=== PATIENT | male | born 1995 | race Caucasian/White ===

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

== ENCOUNTER 2017-02-07 22:03 | Emergency (ER) | payer OTHER ==
[~2017-02-07] VITALS: Ht 175.3 cm; Wt 90.7 kg
[~2017-02-07 22:03] MED LIST changes: +ALBENZA200 MG PO
[2017-02-07 22:11] VITALS: BP 128/79
--- NOTE | 2017-02-07 22:48 | ED MVC/FALL/TRAUMA COMPLAINT ---
History of Present Illness General Chief Complaint: Neck/Upper Back Pain/Injury Stated Complaint: FALL THIS AM, BACK PAIN PER PT Source: patient Exam Limitations: no limitations Vital Signs & Intake/Output Vital Signs & Intake/Output Vital Signs Date Time Temp Pulse Resp B/P Pulse O2 O2 Flow FiO2 Ox Delivery Rate 02/07 2211 96.9 82 18 128/79 97 Room Air ED Intake and Output 02/08 0000 02/07 1200 Intake Total Output Total Balance Patient 200 lb Weight Allergies Coded Allergies: NO KNOWN ALLERGIES (08/16/12) Reconcile Medications Albendazole (Albenza) 200 MG TABLET 2 TAB PO ONCE PINWORMS REPEAT DOSE IN 2 WEEKS Albendazole (Albenza) 200 MG TABLET 2 TAB PO ONCE PINWORM REPEAT IN 2 WEEKS Cyclobenzaprine HCl 10 MG TABLET 1 TAB PO TID BACK SPASMS Ibuprofen 800 MG TABLET 1 TAB PO TID PAIN Triage Note: PT TO TRIAGE FOR C/O MIDDLE BACK PAIN 06/01 S/P SLIPPED AND FELL THIS MORNING, DENIES HEAD STRIKE. VSS. Triage Nurses Notes Reviewed? yes Onset: Abrupt Duration: hour(s):, constant, continues in ED Timing: recent history Severity: moderate, severe No Modifying Factors: none HPI: 21-year-old male comes into emergency room with complaints of lower back pain has been going on since he slipped earlier today on ice and came down on his back. Denies hitting his head. Denies any neck pain. Denies any loss of consciousness. Patient has midline pain and pain to the left side of his back. Pain is sharp. Continuous. Worse with range of motion. Denies any other symptoms of symptoms. (ALYSON RIVERO) Past History Travel History Traveled to [place] past 21 day No Medical History Any Pertinent Medical History? 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 No (ALYSON RIVERO) Review of Systems Review of Systems Constitutional: Reports: no symptoms. Eyes: Reports: no symptoms. Ears, Nose, Throat, Mouth: Reports: no symptoms. Respiratory: Reports: no symptoms. Cardiovascular: Reports: no symptoms. Gastrointestinal/Abdominal: Reports: no symptoms. Genitourinary: Reports: no symptoms. Musculoskeletal: Reports: see HPI. Skin: Reports: no symptoms. Neurological/Psychological: Reports: no symptoms. All Other Systems: Reviewed and Negative (ALYSON RIVERO) Physical Exam Physical Exam General Appearance: well developed/nourished, alert Head: atraumatic, normal appearance Eyes: Bilateral: normal appearance, EOMI. Ears, Nose, Throat, Mouth: hearing grossly normal, moist mucous membrane Neck: normal inspection, full range of motion Respiratory: normal breath sounds, no respiratory distress Cardiovascular: regular rate/rhythm Back: normal inspection, normal range of motion, vertebral tenderness Extremities: normal range of motion Neurologic/Psych: awake, alert, oriented x 3, normal gait, normal mood/affect Skin: intact, normal color Core Measures ACS in differential dx? No Severe Sepsis Present: No Septic Shock Present: No (ALYSON RIVERO) Progress Differential Diagnosis: abd injury, C/T/L spine injury, ext injury, ICH, pelvis injury, pnemothorax, spinal cord injury Plan of Care: Orders Procedure Date/time Status XRY-THORACOLUMBAR SPINE 02/08 2248 Active Diagnostic Imaging: Viewed by Me: Radiology Read. Discussed w/RAD: Radiology Read. Radiology Impression: SERVICE DATE: 02/07/17 EXAM TYPE: RAD - XRY- THORACOLUMBAR SPINE EXAMINATION: XR THORACOLUMBAR SPINE CLINICAL INFORMATION: Status post fall, midline pain COMPARISON: None TECHNIQUE: 2 views of the thoracolumbar spine were obtained. FINDINGS: Mildly limited images of the upper thoracic spine on the lateral views. There is no fracture or bone destruction seen and the vertebral alignment is normal. There is no disc space narrowing. There is no obvious abnormality of the paraspinal soft tissues. IMPRESSION: Unremarkable exam of the thoracolumbar spine. Comments: 02/07/2017 11:39:28 PM Patient clinically looks well. Patient is nontoxic appearing. Patient is in no apparent distress. Patient resting comfortably on stretcher. There is no evidence of any acute trauma. Follow-up with primary care doctor. Return if any concerns worsening symptoms. (ALYSON RIVERO) Departure Departure Disposition: HOME OR SELF CARE Condition: Stable Clinical Impression Primary Impression: Low back strain Referrals: GENO LOPEZ (PCP/Family) Additional Instructions: Taking Motrin and Flexeril as prescribed. Rest. We see to lower back. Follow- up with primary care doctor. Return if any concerns worsening symptoms. Follow-up with your primary care physician this week. Return to the emergency room at any time sooner if you have worsening of your symptoms or any other concerns. Please note that there might be incidental findings in your evaluation that are unrelated to the current emergency department visit. Please notify your primary care doctor about this emergency department visit in order to obtain and review all of the testing performed so that these incidental findings can be monitored as needed. If you were prescribed a narcotic use caution as this medication is highly addictive and will make you drowsy use for breakthrough pain only. No driving, drinking alcohol or operating machinary when taking. If you had an x-ray performed, please understand that some fractures may not be seen on the initial set of x-rays. If your symptoms persist you might need a repeat set of x-rays to check for such a fracture. If you had a laceration evaluated, please understand that foreign bodies such as glass or wood may not be visible to the naked eye or on plain x-rays. If the wound becomes red, swollen, increasingly more painful or if there is any drainage from the wound, please have it reevaluated by a physician for the possibility of a retained foreign body. Departure Forms: Customer Survey General Discharge Information Prescriptions: Current Visit Scripts Ibuprofen 1 TAB PO TID #30 TAB Cyclobenzaprine HCl 1 TAB PO TID #20 TAB (ALYSON RIVERO) PA/ASP NET DEVELOPER Co-Sign Statement Statement: ED Attending supervision documentation- [] I saw and evaluated the patient. I have also reviewed all the pertinent lab results and diagnostic results. I agree with the findings and the plan of care as documented in the PA's/ASP NET DEVELOPER's documentation. [X] I have reviewed the ED Record and agree with the PA's/ASP NET DEVELOPER's documentation. [] Additions or exceptions (if any) to the PAs/ASP NET DEVELOPER's note and plan are summarized below: [] (KAMI SANDOVAL DO
--- NOTE | 2017-02-07 23:16 | RADIOLOGY REPORT ---
EXAMINATION: XR THORACOLUMBAR SPINE CLINICAL INFORMATION: Status post fall, midline pain COMPARISON: None TECHNIQUE: 2 views of the thoracolumbar spine were obtained. FINDINGS: Mildly limited images of the upper thoracic spine on the lateral views. There is no fracture or bone destruction seen and the vertebral alignment is normal. There is no disc space narrowing. There is no obvious abnormality of the paraspinal soft tissues. IMPRESSION: Unremarkable exam of the thoracolumbar spine.
[2017-02-07] MEDS ORDERED: CYCLOBENZAPRINE10 M1 PO (23:35)
[2017-02-07] MEDS ORDERED: IBUPROFEN800 M1 PO (23:35)
== END 2017-02-07 23:41 ==
LOC: ERH 22:03
DX: S39.012A Strain of muscle, fascia and tendon of lower back, initial encounter (principal); W00.0XXA Fall on same level due to ice and snow, initial encounter
CPT/HCPCS: 72080